=== PATIENT | male | born 1950 | race Caucasian/White ===

== ENCOUNTER → 2019-09-12 | Outpatient (CLI) | payer MEDICARE ==
[~2019-09-12] MED LIST: BENA20TA10 PO; OMEP40CA13 PO
== END | disposition home or self-care (01) ==
LOC: RAH 11:05
PROVIDERS: ATTEND Urology
DX: N20.0 Calculus of kidney (principal); Z96.0 Presence of urogenital implants
CPT/HCPCS: 74018; 76100

== ENCOUNTER → 2019-09-28 | Outpatient (CLI) | payer MEDICARE | END | disposition home or self-care (01) | LOC: RAH 13:27 | PROVIDERS: ATTEND Urology | DX: N28.1 Cyst of kidney, acquired (principal); K57.30 Diverticulosis of large intestine without perforation or abscess without bleeding; K80.20 Calculus of gallbladder without cholecystitis without obstruction; N20.0 Calculus of kidney; J98.11 Atelectasis; M47.815 Spondylosis without myelopathy or radiculopathy, thoracolumbar region; Z96.0 Presence of urogenital implants; Z90.5 Acquired absence of kidney | CPT/HCPCS: 74176 ==

== ENCOUNTER 2019-10-11 10:58 | Observation (INO) | payer MEDICARE ==
[2019-10-07 13:05] VITALS: BP 140/69
[2019-10-07 13:08] LABS: HEMATOCRIT 45.3 % (42-54); MEAN CORPUSCULAR HEMOGLOBIN 29.1 pg (27.0-33.0); MEAN CORPUSCULAR HGB CONC 32.9 g/dL (32.0-36.0); MEAN CORPUSCULAR VOLUME 88.5 fL (79-99); PLATELET COUNT (AUTO) 253 K/uL (130-400); RED BLOOD CELL COUNT(AUTO) 5.12 MIL/uL (4.50-6.20); WHITE BLOOD COUNT (AUTO) 7.7 K/uL (4.8-10.8)
[2019-10-07 13:11] LABS: APPEARANCE,URINE Clear (CLEAR); BILIRUBIN,URINE Negative (NEGATIVE); COLOR,URINE Yellow (YELLOW); GLUCOSE, URINE (UA) >=1000 mg/dL (NEGATIVE); KETONES,URINE Negative (NEGATIVE); LEUKOCYTE ESTERASE ,URINE Small (NEGATIVE); NITRATE,URINE Negative (NEGATIVE); OCCULT BLOOD,URINE Large (NEGATIVE); PROTEIN,URINE POS 2+ mg/dL (NEGATIVE); UROBILINOGEN,URINE 0.2 mg/dL (0.2-1.0)
[2019-10-07 13:21] LABS: INR 0.95 (0.85-1.15); PARTIAL THROMBOPLASTIN TIME 27.3 SEC (26.3-35.5); PROTHROMBIN TIME 10.3 SEC (9.6-11.6)
[2019-10-07 13:28] LABS: BACTERIA,URINE None Seen /HPF (None Seen)
[2019-10-07 13:29] LABS: SQUAMOUS EPITHELIAL CELL,UR Rare /HPF (0-2)
--- NOTE | 2019-10-07 13:32 | NUR ---
EKG ABNORMAL EKG REPORTED TO DR. FREEMAN.NO FURTHER ORDERS GIVEN. OK TO PROCEED WITH PLANNED SURGERY
[2019-10-07 13:36] LABS: CREATININE 1.6 mg/dL (0.5-1.5)
--- NOTE | 2019-10-10 10:30 | NUR ---
UA FAXED AND REPORTED ABNORMAL UA TO DR. YAMILKA CEDENO NURSE. SHE WILL INFORM DR. WINKLER.
[2019-10-11] VITALS (25 sets, daily range): BP systolic 138–186; BP diastolic 70–96
[~2019-10-11] VITALS: Ht 172.7 cm; Wt 83.0 kg
[~2019-10-11 10:58] MED LIST changes: +ASPI-1012 PO
[2019-10-11] MEDS ORDERED: CEFAZOLIN SODIUM 1 GM VIAL ONE (11:03)
[2019-10-11] MEDS ORDERED: SODIUM CHLORIDE 0.9% 1000ML 1,000 ML IV ONE (11:03)
[2019-10-11] MEDS ORDERED: MIDAZOLAM HCL 1 MG/ML 2ML VIAL ONE (11:06)
[2019-10-11] MEDS ORDERED: FENTANYL CITRATE PF 50 MCG/1 ML 2ML VIAL ONE ×2 (11:06→15:13)
[2019-10-11] MEDS ORDERED: PROPOFOL 10 MG/ML 20ML VIAL IV ONE (11:08)
[2019-10-11] MEDS ORDERED: IOHEXOL-350 50ML VIAL IV ONE (12:15)
[2019-10-11] MEDS ORDERED: HYDRALAZINE HCL 20 MG/ML VIAL ONE (15:54)
[2019-10-11] MEDS ORDERED: ACETAMINOPHEN-CODEINE 300/30MG TAB PO PRN (17:45)
[2019-10-11] MEDS ORDERED: MEPERIDINE-PF 75 MG/ML SYG IM PRN (17:45)
[2019-10-11] MEDS: SODIUM CHLORIDE 0.9% 1000ML 1,000 ML IV SCH ×2 (17:45→22:42)
[2019-10-11] MEDS ORDERED: ACETAMINOPHEN 325 MG TAB PO PRN (17:45)
[2019-10-11] MEDS ORDERED: ONDANSETRON HCL 4 MG/2 ML VIAL IVP PRN (17:45)
[2019-10-11] MEDS ORDERED: MEPERIDINE-PF 25 MG/ML SYG IM PRN (18:00)
--- NOTE | 2019-10-11 19:00 | NUR ---
GEOVANNA REINA INSERTED IN PROCEDURE Addendum: 10/11/19 at 1902 by GO HERNANDEZ RN RN Amended: Links added.
[2019-10-11] MEDS: CEFAZOLIN SODIUM 1 GM VIAL IVP SCH (22:41)
[2019-10-12] VITALS: BP 153/78
[2019-10-12 04:00] VITALS: BP 126/71
[2019-10-12] MEDS: CEFAZOLIN SODIUM 1 GM VIAL IVP SCH ×2 (04:53→13:25)
[2019-10-12 05:23] LABS: BASOPHILS % (AUTO) 0.1 % (0.0-5.0); HEMATOCRIT 41.3 % (42-54); LYMPHOCYTES % (AUTO) 9.3 % (21.0-51.0); MEAN CORPUSCULAR HEMOGLOBIN 29.1 pg (27.0-33.0); MEAN CORPUSCULAR HGB CONC 33.4 g/dL (32.0-36.0); MEAN CORPUSCULAR VOLUME 87.1 fL (79-99); NEUTROPHILS % (AUTO) 86.1 % (40.0-77.0); PLATELET COUNT (AUTO) 242 K/uL (130-400); RED BLOOD CELL COUNT(AUTO) 4.74 MIL/uL (4.50-6.20); WHITE BLOOD COUNT (AUTO) 9.8 K/uL (4.8-10.8)
[2019-10-12 05:40] LABS: CREATININE 1.7 mg/dL (0.5-1.5); POTASSIUM 4.1 mmol/L (3.5-5.1)
--- NOTE | 2019-10-12 06:00 | NUR ---
FC discontinued: Ludwig cather discontinued per MD's order. Procedure for discontinuance explained. Pt. verbalized understanding and agreed. Balloon deflated and removed intact. 175 cc of Dark yellow urine with blood tinged present in the urobag. Pt. tolerated the procedure well. Endorsed to AM shift.
[2019-10-12] MEDS: SODIUM CHLORIDE 0.9% 1000ML 1,000 ML IV SCH ×2 (07:10→11:10)
[2019-10-12 08:11] VITALS: BP 175/90
[2019-10-12 09:00] VITALS: BP 158/68
[2019-10-12] MEDS ORDERED: ASPIRIN 325 MG TABLET PO SCH (09:00)
[2019-10-12] MEDS ORDERED: LISINOPRIL 20 MG TABLET PO SCH (09:00)
[2019-10-12] MEDS ORDERED: PANTOPRAZOLE SODIUM 40 MG TABLET.DR PO SCH (09:00)
[2019-10-12 11:21] VITALS: BP 143/82
--- NOTE | 2019-10-12 13:25 | NUR ---
[id number] patient signed CARROLL Letter, I faxed CARROLL Letter to [phone] and placed in chart under consent tab
--- NOTE | 2019-10-12 15:50 | NUR ---
DISCHARGE INSTRUCTED PATIENT ON NEW MEDICATION TO BE TAKEN, AND WHEN TO TAKE IT. INSTRUCTED TO CONTINUE HOME MEDICATIONS ALSO. PATIENT INSTRUCTED ON S/S TO REPORT TO DOCTOR IMMEDIATELY. PATIENT VERBALIZED UNDERSTANDING. PATIENT ALSO GIVEN WRITTEN DISCHARGE INSTRUCTED AND PRESCRIPTIONS FOR NEW MEDICATIONS.
--- NOTE | 2019-10-13 08:55 | NUR ---
JUAN CARLOS NOTE CM DISCHARGED, PER NURSE, NO NEEDS VERBALIZED. Addendum: 10/13/19 at 0856 by TITUS IRENE RN CM Amended: Links added.
== END 2019-10-12 15:55 | disposition home or self-care (01) ==
LOC: DAH 10:58 → DAHIP 10:59 → 3AH 17:23
PROVIDERS: ADMIT Urology; ATTEND Urology
DX: N20.2 Calculus of kidney with calculus of ureter (principal); E11.9 Type 2 diabetes mellitus without complications; I10 Essential (primary) hypertension; E78.5 Hyperlipidemia, unspecified; Z90.5 Acquired absence of kidney
CPT/HCPCS: 36415 ×3; 52356; 71046; 74420; 80048 ×2; 81001; 82360; 82948 ×6; 85025; 85027; 85610; 85730; 87088; 93005; 96374; 96376; A4213; A4215; A4221; A4222; A4223; A4344; A4354; A4600; A4663; A4930; A6260; C1758 ×2; C1769 ×2; C1894; C2617; G0378 ×15; J0360; J0690 ×3; J2250; J2704; J3010 ×2; J7030; Q9967